=== PATIENT | male | born 1975 | race Two or more races ===

== ENCOUNTER 2019-01-03 22:07 | Emergency (ER) | payer OTHER ==
[~2019-01-03] VITALS: Ht 287 cm; Wt 80.7 kg
[2019-01-03] MEDS ORDERED: ZANTAC300 MG (22:17)
[2019-01-04] MEDS ORDERED: VISINE-A EYE AL15 ML OP (00:38)
[2019-01-04] MEDS ORDERED: GARAMYCIN OPHT3.5 GM OP (00:38)
[2019-01-04] MEDS ORDERED: KEFLEX500 MG PO (00:39)
== END 2019-01-04 00:51 | disposition home or self-care (01) ==
LOC: ER 22:07
DX: H10.12 Acute atopic conjunctivitis, left eye (principal)

== ENCOUNTER 2019-02-06 21:38 | Emergency (ER) | payer OTHER ==
[~2019-02-06] VITALS: Ht 165.1 cm; Wt 81.6 kg
[~2019-02-06 21:38] MED LIST: GARAMYCIN OPHT3.5 GM OP; KEFLEX500 MG PO; VISINE-A EYE AL15 ML OP; ZANTAC300 MG
== END 2019-02-07 00:23 | disposition home or self-care (01) ==
LOC: ER 21:38
DX: S90.32XA Contusion of left foot, initial encounter (principal); S40.022A Contusion of left upper arm, initial encounter; M12.572 Traumatic arthropathy, left ankle and foot; W18.09XA Striking against other object with subsequent fall, initial encounter; Y93.89 Activity, other specified; Y92.89 Other specified places as the place of occurrence of the external cause; Y99.8 Other external cause status

== ENCOUNTER 2019-02-16 00:21 | Emergency (ER) | payer OTHER ==
[~2019-02-16] VITALS: Ht 165.1 cm; Wt 81.6 kg
[2019-02-16] MEDS ORDERED: FIORICET PO (00:32)
[2019-02-16] MEDS ORDERED: ZANTAC300 MG PO (00:32)
[2019-02-16] MEDS ORDERED: FLEXERIL PO (00:32)
[2019-02-16] MEDS ORDERED: KETO10TA2 PO (02:33)
== END 2019-02-16 02:43 ==
LOC: ER 00:21
DX: S90.812A Abrasion, left foot, initial encounter (principal); V29.88XA Motorcycle rider (driver) (passenger) injured in other specified transport accidents, initial encounter; Y93.89 Activity, other specified; Y92.488 Other paved roadways as the place of occurrence of the external cause; Y99.8 Other external cause status

== ENCOUNTER 2019-03-01 12:11 | Emergency (ER) | payer OTHER ==
[~2019-03-01] VITALS: Ht 165.1 cm; Wt 857.3 kg
[~2019-03-01 12:11] MED LIST changes: +FIORICET PO; +FLEXERIL PO; +KETO10TA2 PO; +ZANTAC300 MG PO
== END 2019-03-01 17:34 | disposition home or self-care (01) ==
LOC: ER 12:11
DX: S93.491A Sprain of other ligament of right ankle, initial encounter (principal); W01.198A Fall on same level from slipping, tripping and stumbling with subsequent striking against other object, initial encounter; Y93.89 Activity, other specified; Y92.098 Other place in other non-institutional residence as the place of occurrence of the external cause; Y99.8 Other external cause status

== ENCOUNTER 2020-10-20 07:48 | Emergency (ER) | payer OTHER ==
[~2020-10-20] VITALS: Ht 165.1 cm; Wt 81.6 kg
[2020-10-20] MEDS ORDERED: PRILOSEC OTC20 MG PO (08:01)
[2020-10-20] MEDS ORDERED: MOTRIN IB200 M1 PO (08:01)
[2020-10-20] MEDS ORDERED: KETO10TA2 PO (11:07)
== END 2020-10-20 12:45 | disposition home or self-care (01) ==
LOC: ER 07:48
DX: S89.81XA Other specified injuries of right lower leg, initial encounter (principal); S79.811A Other specified injuries of right hip, initial encounter; X58.XXXA Exposure to other specified factors, initial encounter; Y93.89 Activity, other specified; Y92.098 Other place in other non-institutional residence as the place of occurrence of the external cause